=== PATIENT | male | born 1955 | race Caucasian/White ===

== ENCOUNTER 2020-11-21 06:02 | Inpatient (IN) | payer OTHER, MEDICARE ==
[~2020-11-21] VITALS: Ht 172.7 cm; Wt 90.7 kg
[2020-11-21] MEDS ORDERED: MONTELUKAST SOD10 MG PO (11:24)
[2020-11-21] MEDS ORDERED: ADVAIR 100-501 EACH INH (11:25)
[2020-11-21] MEDS ORDERED: ZOCOR 40 MG TAB40 MG PO (11:25)
[2020-11-21] MEDS ORDERED: CELEXA 20MG TAB20 MG PO (11:26)
[2020-11-21] MEDS ORDERED: CILOSTAZOL50 MG PO (11:27)
[2020-11-21] MEDS ORDERED: CYCLOBENZAPRINE5 MG PO (11:29)
[2020-11-21] MEDS ORDERED: ERYTHROMYCIN O3.5 GM OS (11:30)
[2020-11-21] MEDS ORDERED: HYDROCODON-ACE1 EAC2 PO (11:31)
[2020-11-21] MEDS ORDERED: NITROGLYCERIN0.4 MG SL (11:32)
[2020-11-21] MEDS ORDERED: PROTONIX 40 MG40 M1 PO (11:33)
[2020-11-21] MEDS ORDERED: VENTOLIN HFA 66.7 GM INH (11:33)
[2020-11-21] MEDS ORDERED: ZESTRIL 40 MG T40 MG PO (11:33)
[2020-11-21] MEDS ORDERED: VOLTAREN ARTHRI20 GM TOP (11:34)
--- NOTE | 2020-11-21 13:45 | NUR ---
PATIENTS SAID HE COULD TOLERATE HYDROCODONE AND PERCOSET.
[2020-11-24 16:27] LABS: HEMOGLOBIN 11.6 gm/dl (14.0-17.5); RED BLOOD COUNT 3.85 M/UL (4.20-5.50); WHITE BLOOD COUNT 11.6 K/UL (4.5-11.0)
[2020-11-24 16:46] LABS: BUN/CREATININE RATIO 31 (0-10)
[2020-11-27] MEDS ORDERED: IBUPROFEN800 MG PO (12:11)
--- NOTE | 2020-11-27 14:14 | NUR ---
Pt o2 sat 88% on room air.
--- NOTE | 2020-11-27 14:18 | NUR ---
1330 Patient's 02 sat 87% on room air.
[2020-11-27] MEDS ORDERED: AUGMENTIN 875-1 EACH PO (14:28)
== END 2020-11-27 17:05 | disposition home or self-care (01) | DRG 199 ==
LOC: MED SURG 4 09:34
PROVIDERS: Surgery; ADMIT Surgery
DX: S27.0XXA Traumatic pneumothorax, initial encounter (principal); J18.9 Pneumonia, unspecified organism; J98.11 Atelectasis; I10 Essential (primary) hypertension; G89.29 Other chronic pain; Z20.822 Contact with and (suspected) exposure to COVID-19; E78.00 Pure hypercholesterolemia, unspecified; K21.9 Gastro-esophageal reflux disease without esophagitis; I73.9 Peripheral vascular disease, unspecified; S00.01XA Abrasion of scalp, initial encounter; H54.61 Unqualified visual loss, right eye, normal vision left eye; Z85.828 Personal history of other malignant neoplasm of skin; Z88.6 Allergy status to analgesic agent; V89.2XXA Person injured in unspecified motor-vehicle accident, traffic, initial encounter
CPT/HCPCS: 36415; 71045; 71046; 80048; 85025; 94640; 94664; 94760; J0696; J2270

== ENCOUNTER → 2020-12-17 | Outpatient (CLI) | payer OTHER, MEDICARE ==
[~2020-12-17] MED LIST: ADVAIR 100-501 EACH INH; AUGMENTIN 875-1 EACH PO; CELEXA 20MG TAB20 MG PO; CILOSTAZOL50 MG PO; CYCLOBENZAPRINE5 MG PO; ERYTHROMYCIN O3.5 GM OS; HYDROCODON-ACE1 EAC2 PO; IBUPROFEN800 MG PO; MONTELUKAST SOD10 MG PO; NITROGLYCERIN0.4 MG SL; PROTONIX 40 MG40 M1 PO; VENTOLIN HFA 66.7 GM INH; VOLTAREN ARTHRI20 GM TOP; ZESTRIL 40 MG T40 MG PO; ZOCOR 40 MG TAB40 MG PO
== END ==
LOC: RAD 12:51
DX: J93.9 Pneumothorax, unspecified (principal)
CPT/HCPCS: 71046